=== PATIENT | male | born 1980 | race Two or more races ===

== ENCOUNTER 2019-11-21 05:00 | Day surgery (SDC) | payer OTHER ==
[~2019-11-21 05:00] MED LIST: [UNRECOGNIZED DRUG - OTHER] PO
== END 2019-11-21 11:50 | disposition home or self-care (01) ==
LOC: CIR.AMB 05:00
PROVIDERS: ATTEND Orthopaedic Surgery Hand Surgery
DX: M77.11 Lateral epicondylitis, right elbow (principal); Z20.828 Contact with and (suspected) exposure to other viral communicable diseases